=== PATIENT | male | born 1950 | race Two or more races ===

== ENCOUNTER 2016-12-19 15:36 | Emergency (ER) | payer OTHER, BC ==
[~2016-12-19] VITALS: Ht 177.8 cm; Wt 97.0 kg
[~2016-12-19 15:36] MED LIST: AMLODIPINE BESY10 MG PO; ASPIRIN81 M2 PO; CLINDAMYCIN HC300 MG PO; COZAAR100 MG PO; HYDROCHLOROTHIA25 MG PO; METOPROLOL SUCC25 MG PO; NAPROXEN500 MG PO; OMEPRAZOLE20 MG PO; TERAZOSIN HCL10 MG PO
[2016-12-19 18:58] LABS: ADD MIUA? YES; BILIRUBIN NEGATIVE; BLOOD NEGATIVE; COLOR YELLOW ((YELLOW)); GLUCOSE (STRIP) NEGATIVE; KETONES NEGATIVE; LEUKOCYTES TRACE; NITRITE NEGATIVE; PROTEIN (STRIP) NEGATIVE; SPECIFIC GRAVITY 1.028 (1.000-1.030); UROBILINOGEN 0.2 MG/DL (0.2-1.0)
[2016-12-19 19:34] LABS: BACTERIA 1+; CASTS NONE SEEN /LPF; CRYSTALS NONE SEEN; EPITHELIAL CELLS RARE; MUCUS NONE SEEN; RED BLOOD CELLS 0-5 /HPF (0-5); UCUL ADDED? NO; WHITE BLOOD CELLS 0-5 /HPF (0-5)
[2016-12-19] MEDS ORDERED: FLOMAX0.4 MG PO (21:16)
[2016-12-19 21:37] VITALS: BP 128/78
== END 2016-12-19 21:38 | disposition home or self-care (01) ==
LOC: EME 15:36
PROVIDERS: Emergency Medicine
DX: R33.9 Retention of urine, unspecified (principal); I10 Essential (primary) hypertension; Z98.890 Other specified postprocedural states
CPT/HCPCS: 74000; 81003; 99281; 99284